=== PATIENT | male | born 1930 | race Hispanic/Latino ===

== ENCOUNTER → 2019-04-10 | Outpatient (CLI) | payer MEDICARE, OTHER | END | disposition home or self-care (01) | LOC: OIH 09:42 | PROVIDERS: ATTEND Family Medicine | DX: R07.9 Chest pain, unspecified (principal); I70.0 Atherosclerosis of aorta; M47.814 Spondylosis without myelopathy or radiculopathy, thoracic region | CPT/HCPCS: 71046; 71110 ==

== ENCOUNTER 2019-11-09 16:08 | Inpatient (IN) | payer MEDICARE, OTHER ==
[~2019-11-09] VITALS: Ht 175.3 cm; Wt 69.1 kg
[2019-11-09 16:56] LABS: BASOPHILS % (AUTO) 0.6 % (0.0-5.0); EOSINOPHILS % (AUTO) 1.9 % (0.0-8.0); LYMPHOCYTES % (AUTO) 19.4 % (21.0-51.0); MEAN CORPUSCULAR HEMOGLOBIN 29.6 pg (27.0-33.0); MEAN CORPUSCULAR HGB CONC 29.8 g/dL (32.0-36.0); MEAN CORPUSCULAR VOLUME 99.4 fL (79-99); MONOCYTES % (AUTO) 5.3 % (3.0-13.0); NEUTROPHILS % (AUTO) 72.2 % (40.0-77.0); NUCLEATED RED BLOOD CELLS 1.6 % (0.0-0.19); PLATELET COUNT (AUTO) 112 K/uL (130-400); RED BLOOD CELL COUNT(AUTO) 1.69 MIL/uL (4.50-6.20); RED CELL DISTRIBUTION WIDTH 16.1 % (11.0-15.5); WHITE BLOOD COUNT (AUTO) 3.2 K/uL (4.8-10.8)
[2019-11-09 17:02] LABS: HEMATOCRIT 16.8 % (42-54)
[2019-11-09 17:08] LABS: INR 1.14 (0.85-1.15); PARTIAL THROMBOPLASTIN TIME 31.7 SEC (26.3-35.5); PROTHROMBIN TIME 12.2 SEC (9.6-11.6)
[2019-11-09 17:20] LABS: ALBUMIN 2.9 g/dL (3.5-5.0); B-TYPE NATRIURETIC PEPTIDE 529 pg/mL (0-100); BILIRUBIN,TOTAL 0.3 mg/dL (0.2-1.0); TOTAL PROTEIN, SERUM 5.9 g/dL (6.0-8.3)
[2019-11-09 17:26] LABS: CREATININE 9.9 mg/dL (0.5-1.5); POTASSIUM 7.2 mmol/L (3.5-5.1)
[2019-11-09] MEDS ORDERED: ALBUTEROL SULFATE 0.083% 2.5 MG/3 ML INH IH ONE ×2 (17:45→21:48)
[2019-11-09] MEDS ORDERED: CALCIUM GLUCONATE 1 GM/10 ML VIAL IV ONE (17:54)
[2019-11-09] MEDS ORDERED: SODIUM POLYSTYRENE SULFONATE 15 GM/60 ML ML ONE ×2 (17:54→21:25)
[2019-11-09] MEDS ORDERED: DEXTROSE 50%-WATER 50 ML DISP.SYRIN IV ONE (17:55)
[2019-11-09] MEDS ORDERED: SODIUM BICARB 50MEQ 50ML VIAL ONE ×2 (17:55→21:25)
[2019-11-09] MEDS ORDERED: INSULIN HUMULIN R 100 UNIT/ML 3ML ONE (17:56)
[2019-11-09] MEDS ORDERED: SODIUM CHLORIDE 0.9% 50 ML IV ONE (17:56)
[2019-11-09] MEDS ORDERED: FUROSEMIDE 10 MG/ML 4ML VIAL ONE (17:57)
[2019-11-09 20:23] LABS: ABG HCO3 11.5 mmol/L (21.0-28.0); ABG OXYGEN SATURATION 94.6 % (95.0-99.0); ABG PCO2 36 mmHg (35-48)
[2019-11-09 22:59] VITALS: BP 132/46
[2019-11-10] VITALS (9 sets, daily range): BP systolic 121–153; BP diastolic 49–61
[2019-11-10] MEDS ORDERED: ALBUTEROL SULFATE 0.083% 2.5 MG/3 ML INH IH ONE ×4 (01:24→14:13)
[2019-11-10] MEDS ORDERED: SODIUM POLYSTYRENE SULFONATE 15 GM/60 ML ML ONE (02:27)
[2019-11-10 05:25] LABS: MEAN CORPUSCULAR HEMOGLOBIN 29.1 pg (27.0-33.0); MEAN CORPUSCULAR HGB CONC 29.1 g/dL (32.0-36.0); PLATELET COUNT (AUTO) 102 K/uL (130-400); RED BLOOD CELL COUNT(AUTO) 1.58 MIL/uL (4.50-6.20); RED CELL DISTRIBUTION WIDTH 16.2 % (11.0-15.5)
[2019-11-10 05:31] LABS: HEMATOCRIT 15.8 % (42-54)
[2019-11-10 05:47] LABS: BAND NEUTROPHILS % (MANUAL) 2 % (0-2); EOSINOPHILS % (MANUAL) 1 % (1-6); LYMPHOCYTES % (MANUAL) 9 % (22-44); MONOCYTES % (MANUAL) 4 % (2-9); SEGMENTED NEUTROPHILS % 84 % (40-70)
[2019-11-10 05:48] LABS: MAN.DIFF COMMENT-IMPRESSION MANUAL DIFFERENTIAL; PLATELET MORPHOLOGY COMMENT SLIGHTLY DECREASED
[2019-11-10] MEDS ORDERED: SODIUM CHLORIDE 0.9% 250 ML IV ONE (06:56)
[2019-11-10 07:46] LABS: CREATININE 10.3 mg/dL (0.5-1.5); POTASSIUM 6.4 mmol/L (3.5-5.1)
[2019-11-10] MEDS ORDERED: ENOXAPARIN SODIUM 80 MG/0.8 ML SQ SCH (09:00)
[2019-11-10] MEDS ORDERED: ENOXAPARIN SODIUM 1 MG/KG SQ SCH (09:00)
[2019-11-10] MEDS ORDERED: SODIUM BICARBONATE 650 MG TAB PO SCH ×3 (09:00→14:15)
--- NOTE | 2019-11-10 13:50 | NUR ---
Transfusion stopped by nurse. Flow meter malfunction. Approximately 150ml was infused out of 500ml. SIDE LASTER TACK made aware. Will cpntinue to monitor pt.
[2019-11-10] MEDS ORDERED: EPOETIN ALFA 10,000 UNIT/ML VIAL SQ SCH (14:15)
[2019-11-10] MEDS: FUROSEMIDE 10 MG/ML 4ML VIAL IV SCH (15:56)
[2019-11-10] MEDS ORDERED: SODIUM BICARB 8.4% 50ML SYRING 150 MEQ in DEXTROSE 5%-WATER 1,000 ML IV SCH (16:15)
[2019-11-10] MEDS ORDERED: SODIUM BICARB 50MEQ 50ML VIAL IV SCH (16:45)
[2019-11-10] MEDS ORDERED: DEXTROSE 50%-WATER 50 ML DISP.SYRIN IV PRN (16:45)
[2019-11-10] MEDS ORDERED: MAGNESIUM 2GM PREMIX 50ML 50 ML IV PRN (16:45)
[2019-11-10] MEDS ORDERED: GLUCAGON 1MG KIT 1 MG ML IM PRN (16:45)
--- NOTE | 2019-11-10 18:11 | NUR ---
cm note spoke to daughter Allison and states resides at home with spouse and with her, ambulates with walker, and daughter assist with adls,and transport. no home services, [facility] agency on aging info. dc plan is back to home. no needs. Addendum: 11/10/19 at 1817 by ASHELY MEIER CM Amended: Links added.
[2019-11-10] MEDS: ALBUTEROL SULFATE 0.083% 2.5 MG/3 ML INH IH ONE ×2 (18:54→19:03)
[2019-11-10] MEDS: INSULIN HUMULIN R 100 UNIT/ML 3ML SQ SCH (21:00)
[2019-11-10] MEDS: SODIUM BICARBONATE 650 MG TAB PO SCH (21:01)
--- NOTE | 2019-11-10 21:22 | NUR ---
PATIENT'S DAUGHTER IN TO SEE PATIENT. I UPDATED ON STATUS. QUESTIONS AND CONCERNS ADDRESSED. TALKED TO HER REGARDING ADVANCE DIRECTIVES AND DIALYSIS. AT THIS TIME PATIENT REMAINS A FULL CODE.
[2019-11-10] MEDS ORDERED: CARV25TA PO (22:34)
[2019-11-10] MEDS ORDERED: DOXA4TAB3 PO (22:34)
[2019-11-10] MEDS ORDERED: AMLO5TAB9 PO (22:34)
[2019-11-10] MEDS ORDERED: FOLI1TAB85 PO (22:34)
[2019-11-10] MEDS: IRON SUCROSE COMPLEX 100 MG in SODIUM CHLORIDE 0.9% 50 ML IV SCH (22:47)
[2019-11-11] VITALS (24 sets, daily range): BP systolic 133–166; BP diastolic 49–68
[2019-11-11 03:51] LABS: ABG BASE EXCESS -8.5 mmol/L (-2.0-3.0); ABG HCO3 18.1 mmol/L (21.0-28.0); ABG PCO2 41 mmHg (35-48)
[2019-11-11] MEDS: FUROSEMIDE 10 MG/ML 4ML VIAL IV SCH (03:55)
[2019-11-11 05:06] LABS: BASOPHILS % (AUTO) 0.5 % (0.0-5.0); EOSINOPHILS % (AUTO) 6.8 % (0.0-8.0); LYMPHOCYTES % (AUTO) 18.5 % (21.0-51.0); MEAN CORPUSCULAR HEMOGLOBIN 29.4 pg (27.0-33.0); MEAN CORPUSCULAR VOLUME 94.9 fL (79-99); MONOCYTES % (AUTO) 8.2 % (3.0-13.0); NEUTROPHILS % (AUTO) 65.5 % (40.0-77.0); NUCLEATED RED BLOOD CELLS 1.1 % (0.0-0.19); PLATELET COUNT (AUTO) 104 K/uL (130-400); RED BLOOD CELL COUNT(AUTO) 1.77 MIL/uL (4.50-6.20); RED CELL DISTRIBUTION WIDTH 16.3 % (11.0-15.5); WHITE BLOOD COUNT (AUTO) 3.7 K/uL (4.8-10.8)
[2019-11-11 05:10] LABS: HEMATOCRIT 16.8 % (42-54)
[2019-11-11 05:16] LABS: ALBUMIN 2.6 g/dL (3.5-5.0); BILIRUBIN,TOTAL 0.2 mg/dL (0.2-1.0); MAGNESIUM 1.4 mg/dL (1.80-2.40); PHOSPHORUS 8.1 mg/dL (2.5-4.9); POTASSIUM 5.4 mmol/L (3.5-5.1); TOTAL PROTEIN, SERUM 5.3 g/dL (6.0-8.3)
[2019-11-11 05:25] LABS: CREATININE 9.7 mg/dL (0.5-1.5)
[2019-11-11] MEDS: INSULIN HUMULIN R 100 UNIT/ML 3ML SQ SCH ×4 (05:43→20:21)
[2019-11-11] MEDS ORDERED: IRON SUCROSE COMPLEX 100 MG in SODIUM CHLORIDE 0.9% 50 ML IV SCH (09:00)
[2019-11-11] MEDS: SODIUM BICARBONATE 650 MG TAB PO SCH ×2 (09:11→20:21)
[2019-11-11] MEDS: IRON SUCROSE COMPLEX 100 MG in SODIUM CHLORIDE 0.9% 50 ML IV SCH ×2 (09:12→20:21)
--- NOTE | 2019-11-11 19:39 | NUR ---
PATIENT RECEIVED IN BED, AAOX4, NO ACUTE DISTRESS NOTED OR VOICED. TELE WITH SR 79, RR 26, CONT ON O2 4 L VIA NC WITH O2 SATURATION OF 98%. PER REPORT, NO PLANS FOR DIALYSIS AT THIS TIME OR BLOOD TRANSFUSIONS. RADHA RIBEIRO TO SPEAK WITH FAMILY. PATIENT INSTRUCTED TP CALL FOR ASSISTANCE IF NEEDED. PATIENT REMAINS FULL CODE. WILL CONT TO MONITOR CLOSELY.
[2019-11-12] VITALS (22 sets, daily range): BP systolic 133–161; BP diastolic 46–66
[2019-11-12 03:30] LABS: BASOPHILS % (AUTO) 0.5 % (0.0-5.0); EOSINOPHILS % (AUTO) 5.7 % (0.0-8.0); LYMPHOCYTES % (AUTO) 27.9 % (21.0-51.0); MEAN CORPUSCULAR HEMOGLOBIN 29.2 pg (27.0-33.0); MEAN CORPUSCULAR HGB CONC 30.4 g/dL (32.0-36.0); MEAN CORPUSCULAR VOLUME 95.8 fL (79-99); MONOCYTES % (AUTO) 9.2 % (3.0-13.0); NEUTROPHILS % (AUTO) 56.4 % (40.0-77.0); NUCLEATED RED BLOOD CELLS 1.1 % (0.0-0.19); PLATELET COUNT (AUTO) 99 K/uL (130-400); RED BLOOD CELL COUNT(AUTO) 1.68 MIL/uL (4.50-6.20); RED CELL DISTRIBUTION WIDTH 16.2 % (11.0-15.5); WHITE BLOOD COUNT (AUTO) 3.7 K/uL (4.8-10.8)
[2019-11-12 03:34] LABS: HEMATOCRIT 16.1 % (42-54)
[2019-11-12 03:45] LABS: ALBUMIN 2.4 g/dL (3.5-5.0); BILIRUBIN,TOTAL 0.2 mg/dL (0.2-1.0); MAGNESIUM 2.3 mg/dL (1.80-2.40); PHOSPHORUS 8.2 mg/dL (2.5-4.9); POTASSIUM 5.5 mmol/L (3.5-5.1); TOTAL PROTEIN, SERUM 5.2 g/dL (6.0-8.3)
[2019-11-12 04:04] LABS: CREATININE 9.8 mg/dL (0.5-1.5)
[2019-11-12] MEDS: INSULIN HUMULIN R 100 UNIT/ML 3ML SQ SCH ×4 (06:23→20:06)
[2019-11-12] MEDS: SODIUM BICARBONATE 650 MG TAB PO SCH ×2 (09:00→20:07)
[2019-11-12] MEDS: IRON SUCROSE COMPLEX 100 MG in SODIUM CHLORIDE 0.9% 50 ML IV SCH ×2 (11:12→20:07)
[2019-11-12] MEDS ORDERED: SODIUM POLYSTYRENE SULFONATE 15 GM/60 ML ML PO SCH (12:45)
[2019-11-12] MEDS ORDERED: EPOETIN ALFA 10,000 UNIT/ML VIAL SQ SCH (14:15)
--- NOTE | 2019-11-12 16:05 | NUR ---
During Stool. GIB noted. Dr. Friend notified. Consult called to GI regulatory services consultant. Charge nurse aware.
--- NOTE | 2019-11-12 16:07 | NUR ---
1 unit of PRBCs in progress. Pt tolerating well. Will continue to monitor pt's progress.
[2019-11-12 20:01] LABS: MEAN CORPUSCULAR HEMOGLOBIN 26.9 pg (27.0-33.0); MEAN CORPUSCULAR HGB CONC 30.5 g/dL (32.0-36.0); MEAN CORPUSCULAR VOLUME 88.1 fL (79-99); NUCLEATED RED BLOOD CELLS 1.1 % (0.0-0.19); RED BLOOD CELL COUNT(AUTO) 2.27 MIL/uL (4.50-6.20); RED CELL DISTRIBUTION WIDTH 21.8 % (11.0-15.5); WHITE BLOOD COUNT (AUTO) 4.4 K/uL (4.8-10.8)
--- NOTE | 2019-11-12 20:01 | NUR ---
Patient had bloody bowel movement. GI consult pending. Awaiting post transfusion H&H. Will continue to monitor.
[2019-11-13] VITALS (15 sets, daily range): BP systolic 129–166; BP diastolic 53–71
[2019-11-13 03:24] LABS: BASOPHILS % (AUTO) 0.5 % (0.0-5.0); EOSINOPHILS % (AUTO) 5.4 % (0.0-8.0); MEAN CORPUSCULAR HEMOGLOBIN 26.5 pg (27.0-33.0); MEAN CORPUSCULAR HGB CONC 30.7 g/dL (32.0-36.0); MEAN CORPUSCULAR VOLUME 86.3 fL (79-99); MONOCYTES % (AUTO) 9.7 % (3.0-13.0); NEUTROPHILS % (AUTO) 59.9 % (40.0-77.0); NUCLEATED RED BLOOD CELLS 1.5 % (0.0-0.19); PLATELET COUNT (AUTO) 91 K/uL (130-400); RED BLOOD CELL COUNT(AUTO) 2.19 MIL/uL (4.50-6.20); RED CELL DISTRIBUTION WIDTH 22.6 % (11.0-15.5)
[2019-11-13 03:37] LABS: POTASSIUM 5.1 mmol/L (3.5-5.1)
[2019-11-13 03:45] LABS: HEMATOCRIT 18.9 % (42-54)
[2019-11-13 03:54] LABS: CREATININE 9.6 mg/dL (0.5-1.5)
--- NOTE | 2019-11-13 04:17 | NUR ---
Critical H&H Lab informed nurse of Hgb 5.8 & Hct 18.9. [employer] SCUDDING INSPECTOR gave verbal orders to transfuse 1 PRBC. Nurse also spoke of concerns of no results of COVID-19 Test. No intervention would be done at this time regarding COVID-19 test.
[2019-11-13] MEDS: SODIUM BICARBONATE 650 MG TAB PO SCH ×2 (08:46→20:17)
[2019-11-13] MEDS: IRON SUCROSE COMPLEX 100 MG in SODIUM CHLORIDE 0.9% 50 ML IV SCH ×2 (08:47→20:17)
[2019-11-13 10:39] LABS: HEMATOCRIT 23.8 % (42-54)
[2019-11-13 14:09] LABS: BASOPHILS % (AUTO) 0.5 % (0.0-5.0); EOSINOPHILS % (AUTO) 3.4 % (0.0-8.0); HEMATOCRIT 23.9 % (42-54); LYMPHOCYTES % (AUTO) 18.5 % (21.0-51.0); MEAN CORPUSCULAR HEMOGLOBIN 28.7 pg (27.0-33.0); MEAN CORPUSCULAR HGB CONC 32.2 g/dL (32.0-36.0); MEAN CORPUSCULAR VOLUME 89.2 fL (79-99); MONOCYTES % (AUTO) 7.9 % (3.0-13.0); NUCLEATED RED BLOOD CELLS 1.7 % (0.0-0.19); PLATELET COUNT (AUTO) 94 K/uL (130-400); RED BLOOD CELL COUNT(AUTO) 2.68 MIL/uL (4.50-6.20); WHITE BLOOD COUNT (AUTO) 4.2 K/uL (4.8-10.8)
--- NOTE | 2019-11-13 14:20 | NUR ---
Assessment DR BURNS ROUNDED ON PT AT BEDSIDE AFTER PT RECEIVED 1 UNIT OF PRBCS THIS AM. HGB IS NOW 7.7 AND HCT 23.8. PT REMAINS ALERT AND ORIENTED X 3. TOLERATING MEALS WELL . VOIDS PER URINAL WITH UOP THUS FAR 100CC TO 200CC PER USAGE. NO BM OF YET. LAST REPORTED [employer] ON PREVIOUS SHIFT TO BE LARGE AND BLOODY. GI WAS CONSULTED. DIRECTOR OF PROVIDER RELATIONS SPOKE WITH DR GALICIA WHO WILL ASSESS IN AM. EGD PENDING COVID RESULTS. OTHER LAB WORK WAS COLLECTED SHORTLY AFTER ORDERS WERE INPUT PER DR GALICIA THIS AFTERNOON. PT IN NO ACUTE RESPIRATORY DISTRESS, HE IS TOLERATING O2@4L WITH SATS MAINTAINING AT 98-100%. WILL TRANSFER TO [facility] WHEN BED IS AVAILABLE
[2019-11-13 14:24] LABS: INR 1.13 (0.85-1.15); PROTHROMBIN TIME 12.1 SEC (9.6-11.6)
[2019-11-13 14:27] LABS: POTASSIUM 5.2 mmol/L (3.5-5.1)
[2019-11-13 14:36] LABS: CREATININE 9.2 mg/dL (0.5-1.5)
--- NOTE | 2019-11-13 16:11 | NUR ---
RD NOTIFICATION Pt admitted with Chronic Renal Failure. Renal Dialysis diet order in place. Pt tolerating with no complaint of Nausea or vomiting. Fair PO intake. LBM overnight, large bloody stool. Positive Fecal occult blood. EGD pending COVID test results. Pt is por candidate for long-term dialysis. Monitored labs: K 5.2, BUN 115, Cr 9.2, GFR 6, Ca 5.2, P 8.0. Recommend Vitamin D supplementation Recommend Renal Non-Dialysis diet order modification RD to continue to monitor. Please notify as additional nutrition concerns arise. Thank you.
[2019-11-13] MEDS: INSULIN HUMULIN R 100 UNIT/ML 3ML SQ SCH ×2 (16:30→20:18)
[2019-11-13] MEDS: PANTOPRAZOLE SODIUM 40 MG TABLET.DR PO SCH ×2 (18:35→20:17)
[2019-11-13 21:02] LABS: APPEARANCE,URINE Clear (CLEAR); BILIRUBIN,URINE Negative (NEGATIVE); COLOR,URINE Yellow (YELLOW); GLUCOSE, URINE (UA) Negative (NEGATIVE); KETONES,URINE Negative (NEGATIVE); LEUKOCYTE ESTERASE ,URINE Negative (NEGATIVE); NITRATE,URINE Negative (NEGATIVE); OCCULT BLOOD,URINE Moderate (NEGATIVE); PROTEIN,URINE 300 mg/dL (NEGATIVE); UROBILINOGEN,URINE 0.2 mg/dL (0.2-1.0)
[2019-11-13 21:16] LABS: WBC,URINE 0-1 /HPF (0-1)
[2019-11-13 21:17] LABS: BACTERIA,URINE Few /HPF (None Seen); RBC,URINE 0-1 /HPF (0-1); SQUAMOUS EPITHELIAL CELL,UR 0-2 /HPF (0-2)
[2019-11-14 03:56] VITALS: BP 160/70
--- NOTE | 2019-11-14 05:25 | NUR ---
TRANSFER PT ON UNIT AT 2340 11/13/2019; ABLE TO VOICE CONCERNS, MACEDONIAN SPEAKING, DENIES PAIN, DEMONSTRATED CALL LIGHT TO PT AND INSTRUCTED TO CALL FOR ASSISTANCE; NO DISTRESS NOTED
[2019-11-14] MEDS: INSULIN HUMULIN R 100 UNIT/ML 3ML SQ SCH ×4 (06:34→21:00)
--- NOTE | 2019-11-14 07:30 | NUR ---
ASSESSMENT ENCOUNTERED PT AMBULATING BACK FROM BATHROOM, GAIT SLOW AND UNSTEADY, HARD OF HEARING, A&O TO NAME AND PLACE, FORGETFUL, C/O GENERALIZED BODY WEAKNESS AND ACHES. PT IS NPO FOR PENDING EGD BY DR HUSSEIN BUT PT IS UNABLE TO UNDERSTAND PROCEDURE, NECESSITY FOR NPO FOR PROCEDURE AND IS UNCOOPERATIVE WITH ASSESSMENT AND FOLLOWING COMMANDS AND CONTINUES TO BE REDIRECTED FOR TASKS, TELEPHONE CONSENT FOR EGD BY DAUGHTER, CALL LIGHT WITHIN REACH, BED ALARM ACTIVATED.
[2019-11-14 07:58] VITALS: BP 163/73
[2019-11-14] MEDS: IRON SUCROSE COMPLEX 100 MG in SODIUM CHLORIDE 0.9% 50 ML IV SCH ×2 (09:00→21:03)
[2019-11-14] MEDS: PANTOPRAZOLE SODIUM 40 MG TABLET.DR PO SCH ×2 (09:00→21:02)
[2019-11-14] MEDS: SODIUM BICARBONATE 650 MG TAB PO SCH ×2 (09:00→21:02)
[2019-11-14] MEDS ORDERED: EPOETIN ALFA 10,000 UNIT/ML VIAL SQ SCH (09:00)
[2019-11-14 11:44] VITALS: BP 161/69
[2019-11-14] MEDS ORDERED: COMPOUND IV MISC 1 EACH IVSOLN MISC PRN (12:45)
--- NOTE | 2019-11-14 15:00 | NUR ---
Hospice Referral SW visited pt's room, pt's dtr. Allison at bedside who reported was informed of hospice from CM/Leslieobe and verbalized an understanding. Dtr. signed OOHDNR and witnessed; placed in chart for MD signature and primary nurse made aware. Referral faxed to [facility] and OOHDNR copy also faxed to Dr. Gonzales for signature. SW will continue to follow. PLAN: DC home tomorrow with hospice
[2019-11-14] MEDS ORDERED: AMLODIPINE BESYLATE 5 MG TAB ONE (15:26)
[2019-11-14 15:40] VITALS: BP 175/77
[2019-11-14] MEDS: AMLODIPINE BESYLATE 5 MG TAB PO SCH (15:57)
[2019-11-14] MEDS ORDERED: HALOPERIDOL LACTATE 5 MG/ML VIAL IM PRN (17:30)
[2019-11-14] MEDS ORDERED: LORAZEPAM 0.5 MG TABLET ONE (17:39)
[2019-11-14] MEDS: LORAZEPAM 0.5 MG TABLET PO PRN (17:49)
[2019-11-14 20:00] VITALS: BP 151/76
[2019-11-15] VITALS: BP 166/76
[2019-11-15] MEDS: LORAZEPAM 0.5 MG TABLET PO PRN (02:41)
[2019-11-15 04:00] VITALS: BP 182/78
[2019-11-15] MEDS: INSULIN HUMULIN R 100 UNIT/ML 3ML SQ SCH ×2 (06:40→11:14)
[2019-11-15 08:14] VITALS: BP 163/62
[2019-11-15] MEDS: PANTOPRAZOLE SODIUM 40 MG TABLET.DR PO SCH (08:19)
[2019-11-15] MEDS: IRON SUCROSE COMPLEX 100 MG in SODIUM CHLORIDE 0.9% 50 ML IV SCH (08:19)
[2019-11-15] MEDS: SODIUM BICARBONATE 650 MG TAB PO SCH (08:19)
[2019-11-15] MEDS: AMLODIPINE BESYLATE 5 MG TAB PO SCH (08:19)
[2019-11-15 11:35] VITALS: BP 167/70
--- NOTE | 2019-11-15 13:44 | NUR ---
PREPARATIONS MADE TO DISCHARGE PT HOME BY AMBULANCE TO [facility]
--- NOTE | 2019-11-15 14:19 | NUR ---
REPORT GIVEN TO DAYO AGUIRRE OF [facility]. PREPARING PT FOR DISCHARGE HOME
--- NOTE | 2019-11-15 14:19 | NUR ---
OJOOR emailed to Ernesto by CAS; plan is for pt. to be d/c'd home today with hospice.
--- NOTE | 2019-11-15 14:27 | NUR ---
AMBULANCE SERVICE CALLED TO TRANSPORT PT HOME.
--- NOTE | 2019-11-15 15:15 | NUR ---
[facility] HERE TO TRANSPORT PT HOME IN GOOD CONDITION ACCOMPANIED BY HIS DAUGHTER. IV REMOVED W/O DIFFICULTY OR COMPLICATION. PERSONAL BELONGINGS WITH FAMILY
== END 2019-11-15 15:15 | DRG 808 ==
LOC: EDH 16:08 → EDHIP 19:54 → 4BH 21:59 → DAHIP 11-10 20:18 → 4DH 11-13 23:37
PROVIDERS: ADMIT Internal Medicine Critical Care Medicine; ATTEND Internal Medicine Critical Care Medicine
PROC: 30233N1 Transfusion of Nonautologous Red Blood Cells into Peripheral Vein, Percutaneous Approach (ICD-10-PCS; principal; 2019-11-10)
DX: D61.818 Other pancytopenia (principal); N18.6 End stage renal disease; N17.9 Acute kidney failure, unspecified; E87.2 Acidosis; J90 Pleural effusion, not elsewhere classified; I12.0 Hypertensive chronic kidney disease with stage 5 chronic kidney disease or end stage renal disease; K92.2 Gastrointestinal hemorrhage, unspecified; E87.0 Hyperosmolality and hypernatremia; Z51.5 Encounter for palliative care; Z66 Do not resuscitate; E87.70 Fluid overload, unspecified; Z20.828 Contact with and (suspected) exposure to other viral communicable diseases; R62.7 Adult failure to thrive; H91.90 Unspecified hearing loss, unspecified ear; E87.5 Hyperkalemia; K59.00 Constipation, unspecified; I95.9 Hypotension, unspecified; R54 Age-related physical debility; E11.22 Type 2 diabetes mellitus with diabetic chronic kidney disease; E78.5 Hyperlipidemia, unspecified; Z91.15 Patient's noncompliance with renal dialysis; Z87.891 Personal history of nicotine dependence; Z68.22 Body mass index [BMI] 22.0-22.9, adult; Z79.899 Other long term (current) drug therapy
CPT/HCPCS: 36415; 36430; 36600; 71045; 74176; 76770; 80048; 80053; 81001; 82270; 82550; 82803; 82948; 83735; 83880; 84100; 84132; 84484; 85014; 85018; 85025; 85027; 85378; 85610; 85730; 86850; 86900; 86901; 86923; 87426; 87486; 87581; 87633; 87798; 93005; 93970; 94640; 94664; 99291; G0378; J0610; J0885; J1630; J1756; J1815; J1940; J3475; J3490; J7050; J7070; P9016; U0003